=== PATIENT | female | born 1955 | race Caucasian/White ===

== ENCOUNTER 2025-05-02 18:44 | Emergency (ER) | payer MEDICARE, OTHER, SELFPAY ==
[2025-05-02 18:51] VITALS: BP 144/96
[2025-05-02 19:10] LABS: Hematocrit 36.6 % (37.0-47.0); Hemoglobin 13.0 g/dL (12.0-16.0); Mean Corp Hgb Conc. 35.5 g/dL (33.0-37.0); Mean Corpuscular Volume 89.1 fL (81.0-99.0); Nucleated Red Blood Cells % 0 %; Platelet Count 388 10^3/uL (130-400); Red Cell Dist. Width 12.1 % (11.5-14.5)
[2025-05-02 19:19] LABS: ALT (SGPT) 19 U/L (0-35); AST (SGOT) 24 U/L (14-36); Albumin 4.5 g/dl (3.5-5.0); Alkaline Phosphatase 59 U/L (38-126); Blood Urea Nitrogen 12 mg/dl (7-17); Calcium 9.9 mg/dl (8.4-10.2); Carbon Dioxide 25 mmol/L (22-30); Chloride 110 mmol/L (98-107); Glucose 139 mg/dl (70-99); Potassium 3.6 mmol/L (3.5-5.1); Sodium 138 mmol/L (135-145); Total Protein 7.2 g/dl (6.3-8.2); eGFR > 60.00
[2025-05-02 19:21] LABS: INR 1.10; PT 14.5 Sec (11.4-14.6)
[2025-05-02 19:31] LABS: Troponin I < 0.012 ng/ml
[2025-05-02 21:51] VITALS: BMI 29.1
[2025-05-02 21:54] VITALS: BP 145/82
[2025-05-02 22:00] VITALS: BP 143/84
--- NOTE | 2025-05-02 22:34 | ED.GENMED ---
History of Present Illness
General
Chief Complaint: Chest Pain
Source: patient
Time Seen by Provider: 05/02/25 22:03
History of Present Illness
History of Present Illness:
This patient is a 70-year-old female presents emergency department with complaints of feeling like her heart rate has been going up and down today particularly after she did an intense Pilates class. This was not similar to her episodes of atrial
fibrillation in the past. She says that she has done several ECGs via her phone and she had 2 episodes of elevated heart rate, 101 and 109. I looked at both tracings and it was a sinus tachycardia, no A-fib noted. At around noon today she
developed a little bit of 'chest discomfort' that she suspects is 'muscular'. This discomfort waxes and wanes, sometimes going away fully, without specific provoking or relieving factors. It is not pleuritic in nature. She denies associated
nausea, vomiting, diaphoresis, back pain, dyspnea, abdominal pain, leg swelling. When asked about neck or jaw pain she says she felt 'a little bit' of this lasting about an hour earlier today, she thinks it was in her head because she 'freaked out'
regarding her symptoms. Patient denies symptoms at this time.
Past History
Past History
ED Past Medical History: Other (A-fib, hypertension)
ED Past Surgical History: Gynecological and Tonsilectomy
Social History
Tobacco: Non-smoker
Alcohol: Occasional
Drug: Marijuana
Living: alone
Phy Exam
Physical Exam
Physical Exam:
GENERAL: Alert , in no apparent distress
EYE: pupils equal and reactive
NECK: Supple, no significant adenopathy.
ENT: o/p clr, mmm.
CARDIAC: Regular rate and rhythm .
LUNGS: Clear breath sounds bilaterally, no acute respiratory distress, no wheezes/rales/rhonchi
ABDOMEN: Soft, without focal tenderness, no r/g, no cvat
NEUROLOGICAL: Alert and oriented, no focal neuro deficits
SKIN: Warm and dry, skin intact.
MUSCULOSKELETAL: No edema, well perfused.
PSYCH: Normal and appropriate interaction.
Course
Orders/Labs/Results
Orders:
Orders
05/02/25 18:45
EKG [Electrocardiogram (*1)] Urgent
Reason for Study: Chest Pain
EKG- Treatment ONCE
05/02/25 19:00
Complete Blood Count/With Diff Urgent
Comprehensive Metabolic Panel Urgent
Prothrombin Time Urgent
Troponin I Urgent
05/02/25 22:37
Electrocardiogram (*1) Urgent
Reason for Study: Chest Pain
EKG- Treatment ONCE
05/02/25 22:58
Troponin I Urgent
Abnormal Lab Results
05/02/25
19:00
RBC 4.11 L 10^6/uL
(4.20-5.40)
Hct 36.6 L %
(37.0-47.0)
MCH 31.6 H pg
(27.0-31.0)
Chloride 110 H mmol/L
(98-107)
Glucose 139 H mg/dl
(70-99)
05/02/25 19:00
05/02/25 19:00
Vital Signs
Initial and Last Documented VS:
Initial Vital Signs
Temp Pulse Resp BP Pulse Ox
98.2 F 95 18 144/96 98
05/02/25 18:51 05/02/25 18:51 05/02/25 18:51 05/02/25 18:51 05/02/25 18:51
Last Documented Vital Signs
Temp Pulse Resp BP Pulse Ox
98.2 F 65 13 143/84 100
05/02/25 18:51 05/02/25 22:00 05/02/25 22:00 05/02/25 22:00 05/02/25 22:37
*Pulse Oximetry
SaO2: 100
Oxygen Mode of Delivery: Room air
Update Note
Update Note:
Patient presents to the Emergency Department with __chest pain and elevated heart rate episode
Number and Complexity of Problems Addressed at the Encounter
� Chronic conditions affecting care:
� Acute Exacerbation and/or Progression of Chronic Illness:
� Differential Diagnosis includes: But not limited to arrhythmia such as A-fib, a flutter, SVT, ACS, pleurisy, musculoskeletal, PE, etc. etc.
Amount and/or Complexity of Data to be Reviewed and Analyzed
� I performed an independent evaluation of and my interpretation is:
EKG: Read by me, normal sinus rhythm, low voltage, no acute ischemia, LAD. Repeat ECG unchanged
CT:
Xrays:
Laboratory Studies: Generally unremarkable troponin x 2 within normal limits
Other:
� Review of other/old records reveals:
� Clinical information was obtained by an independent historian:
� Prescriptions/Medications Considered but not given:
� Further testing considered but not performed:
Risk of Complications and/or Morbidity or Mortality of Patient Management
� Social determinants of health affecting care:
� Discussion with other providers (PCP, Hospitalists, Consultants, etc):
� Escalation of care including admission/observation vs risk of discharge considered: Patient remained stable here, low clinical suspicion for ACS or other severe/worrisome pathology. Discussed with patient importance of
follow-up and reasons to return to the ER.
ED Attending Note
-
Portions of this chart may have been created with voice recognition software.� Occasional wrong word or��sound alike� substitutions may have occurred due to the inherent limitations of voice recognition software.
Discharge Plan
Departure
Patient Disposition: Home (Routine Discharge)
Date of Disposition: 05/02/25
Time of Disposition: 23:59
Patient with high blood pressure during this ER visit?: Yes
Condition: Good
Discharge Problem:
Chest pain
Instructions: Chest Pain PCP Follow Up, BLOOD PRESSURE
Referrals:
Allegra Baldwin MD [Family Provider, General] - Follow up in 2-3 days
Activity Restrictions/Additional Instructions:
IF YOU DEVELOP DIZZINESS, CHEST PAIN, SHORTNESS OF BREATH, ABDOMINAL PAIN, NAUSEA, VOMITING, PALPITATIONS, OR OTHER WORRISOME SIGNS, PLEASE RETURN TO THE ER IMMEDIATELY!
Interventions
Interventions:
*Risk Screen - Suicide Last Done: 05/02/25 18:51
*General Assessment Last Done: 05/02/25 18:51
*Neglect/Abuse Screening Last Done: 05/02/25 18:51
*ED- Fall Risk Assessment Last Done: 05/02/25 21:51
*ED COVID-19 Vaccine History Last Done: 05/02/25 21:51
ED- Cardiac Assessment Last Done: 05/02/25 21:51
Discharge Date and Time
Print Language: MONTENEGRIN
[2025-05-02 23:06] VITALS: BP 126/83
[2025-05-02 23:30] LABS: Troponin I < 0.012 ng/ml
[2025-05-03] VITALS: BP 120/71
== END 2025-05-03 00:10 | disposition home or self-care (01) ==
LOC: EMR 18:44
PROVIDERS: Emergency Medicine; EMERGENCY PHYSICIAN Emergency Medicine; FAMILY PHYSICIAN Family Medicine
DX: R07.89 Other chest pain (principal); R68.84 Jaw pain; M54.2 Cervicalgia; I48.91 Unspecified atrial fibrillation; Z88.8 Allergy status to other drugs, medicaments and biological substances
CPT/HCPCS: 99284; 80053; 84484; 85025; 85610; 93005